=== PATIENT | male | born 1995 | race Two or more races ===

== ENCOUNTER 2017-06-23 23:55 | Emergency (ER) | payer BC ==
--- NOTE | 2017-06-24 00:45 | NUR ---
patient came up to billing clerk's window and stated will rather be not seen or traige. Will see PMD in AM
== END 2017-06-24 01:27 | disposition left against medical advice (07) ==
LOC: ER 06-24 00:07
DX: Z53.21 Procedure and treatment not carried out due to patient leaving prior to being seen by health care provider (principal)